=== PATIENT | female | born 1995 | race Caucasian/White ===

== ENCOUNTER 2019-09-12 00:39 | Outpatient (CLI) | payer BC, SELFPAY ==
[2019-09-12 18:07] LABS: SARS-CoV-2 RNA PCR Negative
== END 2019-09-12 00:40 | disposition home or self-care (01) ==
LOC: ANHCOVIDDT 00:39
PROVIDERS: PCP Internal Medicine; Visit Provider Internal Medicine Gastroenterology
DX: Z01.812 Encounter for preprocedural laboratory examination (principal); Z20.828 Contact with and (suspected) exposure to other viral communicable diseases
CPT/HCPCS: 87635; C9803; U0003

== ENCOUNTER 2019-09-14 01:38 | Day surgery (SDC) | payer BC, SELFPAY ==
[2019-09-07 13:01] VITALS: BMI 47.0
[2019-09-14 09:26] VITALS: BP 147/83; PULSE 122; RESP 16; TEMP 36.6; O2SAT 99
[2019-09-14] MEDS: LACTATED RINGERS 1,000 ML 150 ML IV CONT (09:29)
--- NOTE | 2019-09-14 09:34 | WPDANESEPPF ---
Anes - Initial Pre Proc Eval Procedure: Operation Date: 09/14/19 10:30 Proposed Procedures p Esophagogastroduodenoscopy - Angelo Prince MD Date/Time: 09/14/19 09:34 Surgeon: Angelo Prince MD Pre Op Diagnosis: epigastric pain Patient Data Age: 24 Gender: F Height: 1.68 m Weight: 132.7 kg Last Vital Signs Temp 36.6 C 09/14/19 09:26 Pulse 122 H 09/14/19 09:26 Resp 16 09/14/19 09:26 BP 147/83 H 09/14/19 09:26 Pulse Ox 99 09/14/19 09:26 Allergies Allergy/AdvReac Type Severity Reaction Status Date / Time No Known Allergies Allergy Verified 09/07/19 12:59 Home Medications Medication Instructions Recorded Confirmed Type prednisone 20 mg PO DAILY 09/07/19 09/07/19 History Patient hx anesthesia problems: none Family hx anesthesia problems: none [facility] Past Medical History Medical History (Updated 09/14/19 @ 07:48 by Cornelio Matt DO) Morbid obesity Anes - Eval Final PreProcedure Day of Procedure 09/14/19 09:34 Patient weight: morbidly obese Heart: regular rate and rhythm Lungs: clear to auscultation and normal air movement Airway: Mallampati scale class 1 Neurological: alert and oriented Last oral intake: >/= 8 hours ASA classification: III Emergent: no Anesthetic plan: proceed Anesthesia type and monitoring: general GIVS Informed Consent: The patient's anesthetic plan and its attendant risks and benefits were discussed with the patient/family/POA. Questions were solicited and answers provided to the satisfaction of the patient/family/POA.
--- NOTE | 2019-09-14 09:44 | P.HP_ITS ---
History of Present Illness History of Present Illness Consent: Risks, benefits, and alternatives have been discussed and questions answered. Patient agrees to proceed with procedure. Chief complaint: epigastric pain Narrative: Regina Spicer is a 24 year old W female referred for EGD secondary to a 6 month history of epigastric and right upper quadrant abdominal pain. No obvious precipitating or relieving factors. She was diagnosed with costal chondritis. She was placed on some Motrin and she had increased symptoms and this was stopped. She denies any nausea vomiting hematemesis or reflux. No melanotic stools. No change in her lower GI habits. No weight loss. She states she also had an MRI which revealed a splenic abnormality and ultrasound no gallstones. And there is a benign lesion in the spleen. She presently is on no medication. She has had left ankle surgery for torn tendon and been brachial cyst removed in the past. [facility] Past Medical History Medical History Morbid obesity Meds Home Medications and Allergies Home Medications Medication Instructions Recorded Confirmed Type prednisone 20 mg PO DAILY 09/07/19 09/07/19 History Allergies Allergy/AdvReac Type Severity Reaction Status Date / Time No Known Allergies Allergy Verified 09/07/19 12:59 Vital Signs Vital Signs - 24 hr 09/14/19 09:26 Temperature 36.6 C Pulse Rate 122 H Respiratory Rate 16 Blood Pressure 147/83 H Pulse Oximetry 99 Exam Const: Orientation/consciousness: patient oriented x3 Resp: Auscultation: clear to auscultation bilaterally Cardio: Rate: regular rate Rhythm: regular rhythm Heart sounds: no murmurs GI: GI Palp: Yes Soft to palpation, No Tenderness to palpation present (GI), Yes No hepatosplenomegaly present and No Palpable mass present Auscultation: normal bowel sounds Neuro: General: patient oriented x3 and no focal motor deficits Extrem: General: no pedal edema Assessment and Plan Additional Plan EGD for evaluation of persistent upper abdominal pain
[2019-09-14] MEDS: BENZOCAINE (*SP) 60 ML SPRAY CAN (HURRICAINE) 1 SPRAY MUCOUS MEM (10:56)
[2019-09-14 11:06] VITALS: BP 95/52; PULSE 80; RESP 20; O2SAT 100
[2019-09-14 11:16] VITALS: BP 96/58; PULSE 74; RESP 16; O2SAT 100
[2019-09-14 11:26] VITALS: BP 122/82; PULSE 73; RESP 18; O2SAT 100
== END 2019-09-14 11:54 | disposition home or self-care (01) ==
PROVIDERS: PCP Internal Medicine; Visit Provider Internal Medicine Gastroenterology
PROC: 0DJ08ZZ Inspection of Upper Intestinal Tract, Via Natural or Artificial Opening Endoscopic (ICD-10-PCS; CPT 43235; principal; 2019-09-14 10:30)
DX: K29.50 Unspecified chronic gastritis without bleeding (principal); E66.01 Morbid (severe) obesity due to excess calories; Z68.42 Body mass index [BMI] 45.0-49.9, adult
CPT/HCPCS: 43239; 87081; J2704; J7120

== ENCOUNTER 2023-10-10 13:12 | Emergency (ER) | payer OTHER, SELFPAY ==
[2023-10-10 13:28] VITALS: BP 149/90; PULSE 97; RESP 16; TEMP 36.6; O2SAT 99
--- NOTE | 2023-10-10 13:40 | ED.FEMALEGU ---
HPI - Female Genitourinary General Chief complaint: Urogenital-Female Stated complaint: Urinary Problems Time Seen by Provider: 10/10/23 13:33 Source: patient and RN notes reviewed Mode of arrival: ambulatory Limitations: no limitations History of Present Illness HPI Narrative: Patient presents today with a 2 day history of urinary frequency, dysuria, cloudy urine. No recent antibiotic use. She took a dose of azo 1 hour prior to arrival. Also took a few doses of her mother's leftover amoxicillin a few days ago without relief. Related Data Home Medications Medication Instructions Recorded Confirmed norgestimate 0.25 mg-ethinyl 1 tablet DIRECTED 10/10/23 10/10/23 estradiol 35 mcg tablet (Estarylla) Allergies Allergy/AdvReac Type Severity Reaction Status Date / Time No Known Allergies Allergy Verified 09/07/19 12:59 Review of Systems Review of Systems: CONSTITUTIONAL: Denies body aches, fever, chills, or sweats. EYES: Denies visual changes, redness, or discharge. ENT: Denies rhinorrhea, congestion, sore throat, or otalgia. CARDIOVASCULAR: Denies chest pain, palpitations, or edema. RESPIRATORY: Denies cough or dyspnea. GASTROINTESTINAL: Denies abdominal pain, nausea, vomiting, or diarrhea. GENITOURINARY: + frequency, dysuria, cloudy urine SKIN: Denies rash, itching, or wounds. MUSCULOSKELETAL: Denies back pain, joint pain, or myalgia. NEUROLOGIC: Denies headache, numbness, tingling, or weakness. PSYCH: Denies depression or anxiety. [facility] Past Medical History Medical History (Updated 10/10/23 @ 13:43 by Gertrudis Hall, [facility], ) Morbid obesity Comments At time of signature, I have reviewed and agree with nursing past medical, surgical, social and family history unless otherwise noted. Please see nursing chart for further information. There is no relevant family history pertinent to the presenting complaint Exam Narrative: GENERAL: Well-appearing, well-nourished, and in no acute distress. HEAD: Normocephalic, atraumatic. EYES: EOMI. No redness or drainage. Conjunctivae normal. ENT: Mucous membranes pink and moist. NECK: Normal AROM. CHEST: No respiratory distress. Clear to auscultation. HEART: Regular rate and rhythm. No murmur appreciated. EXTREMITIES: Normal range of motion. No edema. SKIN: Warm, dry, no rash. Capillary refill normal. Normal skin turgor. NEURO: No focal deficits. Alert and oriented x3. Gait steady. PSYCH: Normal affect. No signs of depression or anxiety. Course Course Level of Care: Express Care Visit Vital Signs Vital signs: Vital Signs Temperature 97.8 F 10/10/23 13:28 Pulse Rate 97 10/10/23 13:28 Respiratory Rate 16 10/10/23 13:28 Blood Pressure 149/90 H 10/10/23 13:28 Pulse Oximetry 99 10/10/23 13:28 Oxygen Delivery Room Air 10/10/23 13:28 Temperature 97.8 F 10/10/23 13:28 Pulse Rate 97 10/10/23 13:28 Respiratory Rate 16 10/10/23 13:28 Blood Pressure 149/90 H 10/10/23 13:28 Pulse Oximetry 99 10/10/23 13:28 Oxygen Delivery Room Air 10/10/23 13:28 Reviewed MDM - Female Genitourinary MDM Narrative Medical decision making narrative: Analysis shows positive nitrites. Culture pending. Prescription for Keflex sent to pharmacy. Anticipatory guidance given. Differential Diagnosis Differential diagnosis: Likely urinary tract infection, vaginitis and cystitis Lab Data Attestation: I reviewed the patient's lab results. Labs: Urine Glucose Negative Reference Range: Negative Urine Bilirubin Negative Reference Range: Negative Urine Ketone Negative Reference Range: Negative Urine Specific [place] 1.010 Reference Range:1.001-1.035
== END 2023-10-10 13:48 | disposition home or self-care (01) ==
PROVIDERS: Emergency Provider Nurse Practitioner; PCP Internal Medicine
DX: N30.00 Acute cystitis without hematuria (principal); E66.01 Morbid (severe) obesity due to excess calories; Z68.41 Body mass index [BMI] 40.0-44.9, adult
CPT/HCPCS: 81003; 87086; 87088; 99213; G0463